=== PATIENT | female | born 1975 | race Caucasian/White ===

== ENCOUNTER 2018-07-13 01:13 | Emergency (ER) | payer BC ==
--- NOTE | 2018-07-13 01:57 | EDM.PDOC ---
ED HPI GENERAL MEDICAL PROBLEM - General Chief Complaint: General Stated Complaint: VOMITTING, CHEST PAIN, BACK PAIN Time Seen by Provider: 07/13/18 01:47 Source of Information: Reports: Patient, RN Notes Reviewed History Limitations: Reports: No Limitations - History of Present Illness INITIAL COMMENTS - FREE TEXT/NARRATIVE: 43-year-old female presents emergency department today with complaint of burping , upper respiratory symptomatology right nose, chest tightness, upset stomach nausea and vomiting she is concerned this may be related to herpetic toes of which is not providing 9 months she has had similar symptoms which initially started the medication, symptoms have been going on for about a week Back Pain Score (Numeric/FACES): 5 - Related Data Allergies Allergy/AdvReac Type Severity Reaction Status Date / Time morphine Allergy Anxiety Verified 07/13/18 01:31 Home Meds: Home Meds Aspirin [Halfprin] 81 mg PO DAILY 07/13/18 [History] Gabapentin [Neurontin] 100 mg PO BID 07/13/18 [History] Liraglutide [Victoza] 1.8 mg SQ DAILY 07/13/18 [History] atorvaSTATin [Lipitor] 20 mg PO BEDTIME 07/13/18 [History] glipiZIDE [Glucotrol] 10 mg PO BID 07/13/18 [History] metFORMIN HCl [Metformin HCl] 1,000 mg PO BID 07/13/18 [History] Past Medical History HEENT History: Reports: Impaired Vision Cardiovascular History: Reports: Other (See Below) Other Cardiovascular History: hx of small hole in heart 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: Endocrine/Metabolic History: Reports: Diabetes, Type II - Infectious Disease History Infectious Disease History: Reports: Chicken Pox - Past Surgical History HEENT Surgical History: Reports: Tonsillectomy Female Surgical History: Reports: Section Social & Family History - Tobacco Use Smoking Status *Q: Never Smoker - Caffeine Use Caffeine Use: Reports: Soda - Recreational Drug Use Recreational Drug Use: No ED ROS GENERAL - Review of Systems Review Of Systems: See Below Constitutional: Denies: Fever, Chills, Diaphoresis HEENT: Reports: Rhinitis Respiratory: Reports: No Symptoms Cardiovascular: Reports: Chest Pain GI/Abdominal: Reports: Nausea, Vomiting, Other (Burping). Denies: Abdominal Pain, Constipation, Diarrhea, Distension : Reports: No Symptoms Musculoskeletal: Reports: No Symptoms Skin: Reports: No Symptoms Neurological: Reports: No Symptoms ED EXAM, GENERAL - Physical Exam Exam: See Below Free Text/Narrative:: General: Female, not in any distress, alert and oriented x3 HEENT: head is atraumatic normocephalic, eyes pupils equal round reactive to light, sclera clear no conjunctivitis appreciated. Ears tympanic membranes clear and smart landmarks and light reflex are present bilaterally canals are clear. Nose no septal deviation, nares are clear, no blood present. Mouth mucosa is moist and pink no erythema or exudate noted in soft palate, tongue is midline uvula is midline, dentition is intact. Neck: Supple no thyromegaly no tracheal deviation. Nodes: Cervical nodes subclavicular nodes nontender no palpable lymphadenopathy noted. Lungs: clear to auscultation bilaterally with symmetrical respirations, no adventitious noise appreciated. CV: Regular rate and rhythm S1 and S2 appreciated no murmurs rubs or gallops noted. Abdomen: Soft, nontender, no palpable masses or organomegaly appreciated, no distention no guarding bowel sounds are present, . Neuro: Cranial nerves II through XII intact, GCS of 15 Skin: Warm and dry, intact Extremities: No lower extremity edema appreciated, . Course - Vital Signs Last Recorded V/S: Last Vital Signs Temp 96.3 F 07/13/18 01:37 Pulse 125 H 07/13/18 01:37 Resp 18 07/13/18 01:37 BP 138/97 H 07/13/18 01:37 Pulse Ox 95 07/13/18 01:37 - Orders/Labs/Meds Orders: Active Orders 24 hr Category Date Time Status Cardiac Monitoring [RC] .As Directed Care 07/13/18 01:54 Active CULTURE URINE [RM] Urgent Lab 07/13/18 02:54 Ordered Labs: Laboratory Tests 07/13/18 07/13/18 07/13/18 Range/Units 02:07 02:07 02:07 WBC 14.0 H (4.5-11.0) K/uL RBC 5.31 (3.30-5.50) M/uL Hgb 16.0 H (12.0-15.0) g/dL Hct 46.6 (36.0-48.0) % MCV 88 (80-98) fL MCH 30 (27-31) pg MCHC 34 (32-36) % Plt Count 228 (150-400) K/uL Neut % (Auto) 81 H (36-66) % Lymph % (Auto) 12 L (24-44) % [place] % (Auto) 5 (2-6) % Eos % (Auto) 1 L (2-4) % Baso % (Auto) 0 (0-1) % Sodium 138 L (140-148) mmol/L Potassium 4.0 (3.6-5.2) mmol/L Chloride 101 (100-108) mmol/L Carbon Dioxide 22 (21-32) mmol/L Anion Gap 19.0 H (5.0-14.0) mmol/L BUN 17 (7-18) mg/dL Creatinine 1.0 (0.6-1.0) mg/dL Est Cr Clr Drug Dosing 71.27 mL/min Estimated GFR (MDRD) > 60 (>60) Glucose 301 H (74-106) mg/dL Lactic Acid 2.5 H (0.4-2.0) mmol/L Calcium 9.7 (8.5-10.1) mg/dL Total Bilirubin 0.8 (0.2-1.0) mg/dL AST 42 H (15-37) U/L ALT 78 (12-78) U/L Alkaline Phosphatase 100 (46-116) U/L Troponin I < 0.017 (0.000-0.056) ng/mL Total Protein 8.6 H (6.4-8.2) g/dL Albumin 4.0 (3.4-5.0) g/dL Globulin 4.6 H (2.3-3.5) g/dL Albumin/Globulin Ratio 0.9 L (1.2-2.2) Lipase 245 (73-393) U/L Urine Color Urine Appearance Urine pH (4.5-8.0) Ur Specific [place] (1.008-1.030) Urine Protein (NEGATIVE) mg/dL Urine Glucose (UA) (NEGATIVE) mg/dL Urine Ketones (NEGATIVE) mg/dL Urine Occult Blood (NEGATIVE) Urine Nitrite (NEGATIVE) Urine Bilirubin (NEGATIVE) Urine Urobilinogen (NORMAL) mg/dL Ur Leukocyte Esterase (NEGATIVE) Urine RBC (0-5) Urine WBC (0-5) Ur Epithelial Cells Amorphous Sediment Urine Bacteria Urine Mucus 02/26/19 Range/Units 02:23 WBC (4.5-11.0) K/uL RBC (3.30-5.50) M/uL Hgb (12.0-15.0) g/dL Hct (36.0-48.0) % MCV (80-98) fL MCH (27-31) pg MCHC (32-36) % Plt Count (150-400) K/uL Neut % (Auto) (36-66) % Lymph % (Auto) (24-44) % [place] % (Auto) (2-6) % Eos % (Auto) (2-4) % Baso % (Auto) (0-1) % Sodium (140-148) mmol/L Potassium (3.6-5.2) mmol/L Chloride (100-108) mmol/L Carbon Dioxide (21-32) mmol/L Anion Gap (5.0-14.0) mmol/L BUN (7-18) mg/dL Creatinine (0.6-1.0) mg/dL Est Cr Clr Drug Dosing mL/min Estimated GFR (MDRD) (>60) Glucose (74-106) mg/dL Lactic Acid (0.4-2.0) mmol/L Calcium (8.5-10.1) mg/dL Total Bilirubin (0.2-1.0) mg/dL AST (15-37) U/L ALT (12-78) U/L Alkaline Phosphatase (46-116) U/L Troponin I (0.000-0.056) ng/mL Total Protein (6.4-8.2) g/dL Albumin (3.4-5.0) g/dL Globulin (2.3-3.5) g/dL Albumin/Globulin Ratio (1.2-2.2) Lipase (73-393) U/L Urine Color Yellow Urine Appearance Slightly cloudy Urine pH 5.0 (4.5-8.0) Ur Specific [place] 1.020 (1.008-1.030) Urine Protein 30 H (NEGATIVE) mg/dL Urine Glucose (UA) 1000 H (NEGATIVE) mg/dL Urine Ketones Negative (NEGATIVE) mg/dL Urine Occult Blood Negative (NEGATIVE) Urine Nitrite Negative (NEGATIVE) Urine Bilirubin Negative (NEGATIVE) Urine Urobilinogen Normal (NORMAL) mg/dL Ur Leukocyte Esterase Small (NEGATIVE) Urine RBC 5-10 H (0-5) Urine WBC 10-20 H (0-5) Ur Epithelial Cells Many Amorphous Sediment Many Urine Bacteria Many Urine Mucus Rare Departure - Departure Time of Disposition: 02:56 Disposition: Home, Self-Care 01 Condition: Fair Clinical Impression: UTI, Urinary tract infectious disease - Discharge Information Referrals: Sandeep Bloom MD [Primary Care Provider] - Forms: ED Department Discharge Additional Instructions: Take full course of antibiotics for 3 days, recommend short stoppage of the ptosis to see if you're symptomology resolved and then restarting the medication to see if the symptomatology return, at that time follow-up with your primary care provider to discuss options for your diabetes treatment, call return to the emergency department worsening of symptoms - My Orders Last 24 Hours: My Active Orders 07/13/18 01:54 Cardiac Monitoring [RC] .As Directed 07/13/18 02:54 CULTURE URINE [RM] Urgent - Assessment/Plan Last 24 Hours: My Active Orders 07/13/18 01:54 Cardiac Monitoring [RC] .As Directed 07/13/18 02:54 CULTURE URINE [RM] Urgent Plan: Assessment Acuity = acute Site and laterality = urinary tract infection Etiology = probable bacterial cause Manifestations = none Location of injury = Home Lab values = WBC elevated at 14.0 consistent leukocytosis glucose elevated 301 hyperglycemia lactic acid elevated 2.5 consistent lactic acidosis, troponin is negative urinalysis reveals 5-10 rbc's consistent hematuria 10-20 WBCs consistent pyuria cultures pending Plan Did review lab work with her as well as her symptomology, for her urinary tract infection elected treat with Bactrim DS 1 tab by mouth twice a day 3 days, for her symptoms after treatment of her urinary tract infection she is going to stop her Victoza for 3 days and see if her symptoms resolve then restart her Victoza and of her symptoms start again she will then follow-up with her primary care provider for reevaluation and changing medication for her diabetes treatment This note was dictated using [employer] voice recognition software please call with any questions on syntax or grammar.
== END 2018-07-13 03:08 | disposition home or self-care (01) ==
LOC: JP.ED 01:13
DX: N39.0 Urinary tract infection, site not specified (principal); E11.9 Type 2 diabetes mellitus without complications; Z88.5 Allergy status to narcotic agent; Z79.899 Other long term (current) drug therapy; Z79.82 Long term (current) use of aspirin; Z79.84 Long term (current) use of oral hypoglycemic drugs
CPT/HCPCS: 36415; 80053; 81001; 83605; 83690; 84484; 85025; 87086; 99284

== ENCOUNTER 2020-03-31 22:14 | Emergency (ER) | payer BC ==
[2020-04-01] MEDS ORDERED: Proparacaine 0.5% Ophth Soln 15 ML Bottle EYEBOTH STA (00:18)
[2020-04-01] MEDS ORDERED: Diphtheria,Pertussis(Acell),Tetanus Vaccine 0.5 ML Syringe IM ONE (00:34)
--- NOTE | 2020-04-01 00:38 | EDM.PDOC ---
ED HPI GENERAL MEDICAL PROBLEM - General Chief Complaint: ENT Problem Stated Complaint: UNABLE TO GET CONTACT OUT Time Seen by Provider: 04/01/20 00:17 Source of Information: Reports: Patient, RN Notes Reviewed History Limitations: Reports: No Limitations - History of Present Illness INITIAL COMMENTS - FREE TEXT/NARRATIVE: 44-year-old female presents emergency department a concern for contact stuck in her right eye she has been manipulating her eye and now has thick purulent drainage coming out of the eye her vision is poor cannot do eye chart due to thick purulent drainage right eye Pain Score (Numeric/FACES): 6 - Related Data Allergies Allergy/AdvReac Type Severity Reaction Status Date / Time morphine Allergy Anxiety Verified 03/31/20 23:59 Home Meds: Home Meds atorvaSTATin [Lipitor] 20 mg PO BEDTIME 07/13/18 [History] metFORMIN HCl [Metformin HCl] 1,000 mg PO BID 07/13/18 [History] Gabapentin [Neurontin] 300 mg PO BID 03/31/20 [History] Insulin Degludec [Tresiba Flextouch U-100] 40 units SUBCUT DAILY 03/31/20 [History] Past Medical History HEENT History: Reports: Impaired Vision, Other (See Below) Other HEENT History: contact lenses and glasses Cardiovascular History: Reports: Other (See Below) Other Cardiovascular History: hx of small hole in heart Genitourinary History: Reports: None 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: Endocrine/Metabolic History: Reports: Diabetes, Type II - Infectious Disease History Infectious Disease History: Reports: Chicken Pox - Past Surgical History HEENT Surgical History: Reports: Tonsillectomy Female Surgical History: Reports: Section Social & Family History - Tobacco Use Tobacco Use Status *Q: Never Tobacco User - Caffeine Use Caffeine Use: Reports: None - Recreational Drug Use Recreational Drug Use: No ED ROS GENERAL - Review of Systems Review Of Systems: See Below Constitutional: Reports: No Symptoms HEENT: Reports: Eye Discharge, Eye Pain ED EXAM GENERAL W FULL EYE - Physical Exam Exam: See Below Exam Limited By: No Limitations General Appearance: Alert, WD/WN, No Apparent Distress Eye Exam: Bilateral Eye: EOMI, PERRL Eyelids: Bilateral: Normal Appearance Conjunctiva & Sclera: Right: Conjunctival Edema, Discharge, Injected, Left: Normal Appearance Cornea Exam: Right: Normal Appearance Extraocular Movements: Bilateral: Intact Pupils: Normal Accommodation Pupillary Size: Bilateral: 4 mm Pupillary Reaction: Bilateral: Brisk Anterior Chamber: Right: Normal Appearance Course - Vital Signs Last Recorded V/S: Last Vital Signs Temp 97.9 F 04/01/20 00:02 Pulse 84 04/01/20 00:02 Resp 16 04/01/20 00:02 BP 146/88 H 04/01/20 00:02 Pulse Ox 97 04/01/20 00:02 - Orders/Labs/Meds Orders: Active Orders 24 hr Category Date Time Status Vaccines to be Administered [RC] PER UNIT ROUTINE Care 04/01/20 00:34 Ordered Diphth,Pertuss(Acell),Tet Vac [Boostrix] Med 04/01/20 00:34 Once 0.5 ml IM .ONCE ONE Medication Orders Diphtheria/Tetanus/Acell Pertussis (Boostrix) 0.5 ml IM .ONCE ONE Stop: 04/01/20 00:35 Meds: Medications Generic Name Dose Route Start Last Admin Trade Name Freq PRN Reason Stop Dose Admin Diphtheria/Tetanus/Acell Pertussis 0.5 ml 04/01/20 00:34 Boostrix IM 04/01/20 00:35 .ONCE ONE Discontinued Medications Generic Name Dose Route Start Last Admin Trade Name Freq PRN Reason Stop Dose Admin Proparacaine HCl 1 ml 04/01/20 00:18 04/01/20 00:21 Proparacaine 0.5% Ophth Soln EYEBOTH 04/01/20 00:19 1 drop NOW STA Administration Departure - Departure Time of Disposition: 00:38 Disposition: Home, Self-Care 01 Condition: Fair Clinical Impression: Foreign body of right eye Qualifiers: Encounter type: initial encounter Qualified Code(s): T15.91XA - Foreign body on external eye, part unspecified, right eye, initial encounter - Discharge Information Instructions: Eye Foreign Body, [id number] Referrals: Sandeep Bloom MD [Primary Care Provider] - Additional Instructions: Take full course of antibiotics until reevaluated by care provider, please follow-up with your eye care provider next week Sepsis Event Note (ED) - Evaluation Sepsis Screening Result: No Definite Risk - Focused Exam Vital Signs: Vital Signs Temp Pulse Resp BP Pulse Ox 04/01/20 00:02 97.9 F 84 16 146/88 H 97 03/31/20 23:44 97.9 F 84 16 146/88 H 97 - My Orders Last 24 Hours: My Active Orders 04/01/20 00:34 Vaccines to be Administered [RC] PER UNIT ROUTINE Diphth,Pertuss(Acell),Tet Vac [Boostrix] 0.5 ml IM .ONCE ONE - Assessment/Plan Last 24 Hours: My Active Orders 04/01/20 00:34 Vaccines to be Administered [RC] PER UNIT ROUTINE Diphth,Pertuss(Acell),Tet Vac [Boostrix] 0.5 ml IM .ONCE ONE Plan: Assessment Acuity = acute Site and laterality = foreign body right eye Etiology = contact lens with frequent touching of the eye Manifestations = none set Location of injury = Home Lab values = none Plan Be because a local infection she has caused with frequent touching of the eye she is placed on gentamicin ophthalmic drops also her tetanus status is out of date tetanus was updated today she will follow-up with her eye care provider next week no contact lens was ever discovered This note was dictated using [employer] voice recognition software please call with any questions on syntax or grammar.
== END 2020-04-01 00:44 | disposition home or self-care (01) ==
LOC: JP.ED 22:14
DX: T15.91XA Foreign body on external eye, part unspecified, right eye, initial encounter (principal); E11.9 Type 2 diabetes mellitus without complications; Z23 Encounter for immunization; Z90.49 Acquired absence of other specified parts of digestive tract; Z88.5 Allergy status to narcotic agent; Z79.4 Long term (current) use of insulin; Z79.899 Other long term (current) drug therapy
CPT/HCPCS: 90471; 90715; 99283; A9270

== ENCOUNTER 2024-08-12 06:45 | Day surgery (SDC) | payer BC ==
[~2024-08-12 06:45] MED LIST: Lactated Ringers 1,000 ML IV SCH
[2024-08-12] MEDS ORDERED: fentaNYL 50 MCG/ML SDV ONE (07:06)
[2024-08-12] MEDS ORDERED: Midazolam 1 MG/ML 2 ML SDV ONE (07:06)
[2024-08-12] MEDS ORDERED: Propofol 200 MG/20 ML SDV ONE (07:06)
[2024-08-12] MEDS ORDERED: Sodium Chloride 0.9% 1,000 ML IV SCH (07:15)
[2024-08-12] MEDS: Lactated Ringers 1,000 ML IV SCH (07:46)
== END 2024-08-12 09:35 | disposition home or self-care (01) ==
LOC: JP.SDS 06:45
PROVIDERS: ATTEND Surgery
DX: R13.10 Dysphagia, unspecified (principal); E11.9 Type 2 diabetes mellitus without complications; E78.5 Hyperlipidemia, unspecified; E66.9 Obesity, unspecified; Z88.8 Allergy status to other drugs, medicaments and biological substances
CPT/HCPCS: 43239; 43249; 88305; C1726; J2250; J2704; J3010; J7120; 00731-QZ